=== PATIENT | male | born 1990 | race Caucasian/White ===

== ENCOUNTER 2016-09-13 10:28 | Emergency (ER) | payer SELFPAY ==
[~2016-09-13] VITALS: Ht 175.3 cm; Wt 94.0 kg
[~2016-09-13 10:28] MED LIST: TRAM50 PO
[2016-09-13 10:41] VITALS: BP 136/86; PULSE 71; RESP 16; TEMP 98.2; O2SAT 97
--- NOTE | 2016-09-13 11:34 | PD ---
HPI Chief Complaint: Injury Time Seen by Provider: 11:05 Travel History International Travel<30 days: No Contact w/Intl Traveler<30days: No Traveled to known affect area: No History of Present Illness HPI 26-year-old male presents emergency department for evaluation of right-sided rib pain. He reports that 3 days ago he attempted to jump over his couch he landed onto the flat ground injuring his right rib area. He denies head injury or loss of consciousness. He reports the pain as achy and localized to the right anterior lateral aspect of the ribs. Worse with inspiration and palpation. Relieved with rest. Severity 5 out of 10. He denies shortness of breath, chest pain, dizziness, abdominal pain, nausea or vomiting. He denies any significant past medical history. Denies any medications. He denies any other pain. FORMERLY [facility], [facility] Past Medical History Medical History: Denies Significant Hx Social History Alcohol Use: No Tobacco Use: Yes Substance Use: No Allergies-Medications (Allergen,Severity, Reaction): Coded Allergies: Gabapentin (Verified Adverse Reaction, Intermediate, WENT CRAZY, 09/13/16) Reported Meds & Prescriptions Reported Meds & Active Scripts Active No Active Prescriptions or Reported Medications Review of Systems Except as stated in HPI: all other systems reviewed are Neg Physical Exam Narrative GENERAL: Alert well appearing male. SKIN: Focused skin assessment warm/dry. No ecchymosis, no hematoma. HEAD: Atraumatic. Normocephalic. EYES: Pupils equal and round. No scleral icterus. No injection or drainage. ENT: No nasal bleeding or discharge. Mucous membranes pink and moist. NECK: Trachea midline. No JVD. No midline cervical spine tenderness. CARDIOVASCULAR: Regular rate and rhythm. No murmur appreciated. RESPIRATORY: No accessory muscle use. Clear to auscultation. Breath sounds equal bilaterally. Right anterior lateral rib tenderness. No crepitus or palpable fracture. GASTROINTESTINAL: Abdomen soft, non-tender, nondistended. Hepatic and splenic margins not palpable. MUSCULOSKELETAL: No obvious deformities. No clubbing. No cyanosis. No edema. NEUROLOGICAL: Awake and alert. No obvious cranial nerve deficits. Motor grossly within normal limits. Normal speech. PSYCHIATRIC: Appropriate mood and affect; insight and judgment normal. Data Data Last Documented VS Vital Signs Date Time Temp Pulse Resp B/P Pulse Ox O2 Delivery O2 Flow Rate FiO2 09/13/16 10:41 98.2 71 16 136/86 97 Orders Ribs, Uni (W/Exp Cxr-Min 3vw) (09/13/16 ) [facility] Medical Decision Making Medical Screen Exam Complete: Yes Emergency Medical Condition: Yes Medical Record Reviewed: Yes Differential Diagnosis Rib fracture, rib contusion, pneumothorax Narrative Course 26-year-old male with no significant past medical history presents to the emergency department for evaluation of right-sided rib pain after having a mechanical fall while 3 days ago. He reports that he attempted to jump over his couch and landed flat on his abdomen on the floor. He reports that he has had right-sided rib pain since. He denies chest pain, shortness of breath, dizziness, abdominal pain. On exam he has tenderness on the right lateral ribs. Breath sounds are present on that side. X-ray pending Chest x-ray: No pneumothorax. Possible right rib fracture nondisplaced. Diagnosis Primary Impression: Rib fracture Qualified Code: S22.31XA - Closed fracture of one rib of right side, initial encounter Referrals: Primary Care Physician Scripts Ibuprofen 800 Mg [id number] Mg PO Q8H PRN (Pain/Inflammation) #30 TAB Ref 0 Prov:Tammie Bay 09/13/16 Disposition: 01 DISCHARGE HOME Condition: Stable Tammie Bay September 13, 2016 11:34
--- NOTE | 2016-09-13 11:38 | RADHPO ---
EXAM DATE/TIME: 09/13/2016 11:19 [place] COMPARISON: No previous studies available for comparison. INDICATIONS : Fall, right side rib pain. MEDICAL HISTORY : None. SURGICAL HISTORY : None. ENCOUNTER: Initial ACUITY: 3 days PAIN SCORE: 10/10 LOCATION: Right lateral ribs FINDINGS: Multiple views of the right ribs were performed. There is mild irregularity involving the anterior r ight seventh rib. This may be a nondisplaced cortical fracture. Otherwise, ribs are grossly intact. T here is no pleural effusion or pneumothorax. CONCLUSION: Questionable nondisplaced fracture involving the anterior right seventh rib. Recommend correlation wi th point tenderness. Otherwise, unremarkable study. Vince Bender MD on September 13, 2016 at 11:35 Board Certified Radiologist. This report was verified electronically.
[2016-09-13] MEDS ORDERED: IBUP800T23 PO (11:56)
[2016-09-14] MEDS ORDERED: HYDR-3533 PO (18:05)
== END 2016-09-13 12:08 | disposition home or self-care (01) ==
LOC: PHEFT 10:28
DX: S22.31XA Fracture of one rib, right side, initial encounter for closed fracture (principal); Z72.0 Tobacco use; W22.03XA Walked into furniture, initial encounter
CPT/HCPCS: 71101; 99283

== ENCOUNTER 2016-09-14 17:15 | Emergency (ER) | payer SELFPAY ==
[~2016-09-14] VITALS: Ht 175.3 cm; Wt 95.2 kg
[~2016-09-14 17:15] MED LIST changes: +IBUP800T23 PO
[2016-09-14 17:18] VITALS: BP 131/90; PULSE 77; RESP 16; TEMP 98.2; O2SAT 97
[2016-09-14] MEDS ORDERED: HYDR-3533 PO (18:05)
[2016-09-14] MEDS ORDERED: ACETAMINOPHEN/HYDROcodone 325 MG/5 MG TAB PO ONE (18:15)
--- NOTE | 2016-09-14 18:30 | PD ---
HPI Chief Complaint: Musculoskeletal Complaint Time Seen by Provider: 18:20 Travel History International Travel<30 days: No Contact w/Intl Traveler<30days: No Traveled to known affect area: No History of Present Illness HPI 26-year-old male presents to the emergency room for evaluation of right anterior rib pain. Patient was seen in the emergency room yesterday for same and was diagnosed with nondisplaced rib fracture and discharged with ibuprofen. Patient states he woke up this morning with way increased pain. He called his friend to give him ibuprofen but states it was not helping. Pain does not increase with deep breathing. It is relieved when he raises his hand over his head and exacerbated with touching the area or putting his arm down. He denies abdominal pain, nausea, vomiting, shortness of breath, or difficulty breathing. PFSH Past Medical History Medical History: Denies Significant Hx Diminished Hearing: No Influenza Vaccination: Yes ?: Not Past Surgical History Surgical History: No Previous Surgery Social History Alcohol Use: No Tobacco Use: Yes Substance Use: No Allergies-Medications (Allergen,Severity, Reaction): Coded Allergies: Gabapentin (Verified Adverse Reaction, Intermediate, WENT SILVINA, 09/14/16) Reported Meds & Prescriptions Reported Meds & Active Scripts Active Lortab (Hydrocodone-Acetaminophen) 5-325 Mg Tab 1 Tab PO Q6H PRN Ibuprofen 800 Mg Tab 800 Mg PO Q8H PRN Review of Systems Except as stated in HPI: all other systems reviewed are Neg Physical Exam Narrative GENERAL: Well-nourished, well-developed male in no acute distress. Afebrile. Ambulatory. SKIN: Focused skin assessment warm/dry. HEAD: Normocephalic. EYES: No scleral icterus. No injection or drainage. NECK: Supple, trachea midline. No JVD or lymphadenopathy. CARDIOVASCULAR: Regular rate and rhythm without murmurs, gallops, or rubs. RESPIRATORY: Breath sounds equal bilaterally. No accessory muscle use. No crackles, rales, wheezes, or rhonchi. CHEST: Extreme tenderness to palpation in the right anterior rib rib #7. No deformity or crepitance. No retractions or use of accessory muscles. Data Data Last Documented VS Vital Signs Date Time Temp Pulse Resp B/P Pulse Ox O2 Delivery O2 Flow Rate FiO2 09/14/16 17:18 98.2 77 16 131/90 97 Orders Acetamin-Hydrocod 325-5 Mg ([place] 5-325 (09/14/16 18:15) Resp Incentive Spirometry (09/14/16 ) MDM Medical Decision Making Medical Screen Exam Complete: Yes Emergency Medical Condition: Yes Medical Record Reviewed: Yes Differential Diagnosis Fracture versus contusion versus pain control Narrative Course 26-year-old male presents to the emergency room for evaluation of right anterior rib pain. Patient was diagnosed with rib fracture yesterday but his pain is not controlled. Vital signs stable. No increased work of breathing. No crepitus. There is tenderness to palpation of right anterior rib #7. No abdominal pain. He is Eforsce negative. Patient was given Lortab in the emergency room. He was also given an incentive spirometer. He'll be discharged with prescriptions for Lortab and told to follow up with the primary care physician recheck worsening symptoms. He understands and agrees to plan. Diagnosis Primary Impression: Rib fracture Qualified Code: S22.31XD - Closed fracture of one rib of right side with routine healing, subsequent encounter Referrals: Primary Care Physician Patient Instructions: General Instructions, Rib Fracture (ED) Additional Instructions: Rest and drink plenty of fluids. Take Lortab as directed, as needed for pain. Do not drink alcohol or drive while taking this medication. Take ibuprofen with food as directed, as needed for pain. Apply ice to the affected area for 20 minutes at a time, as needed for pain and swelling. Follow-up with a primary care physician. Return to the emergency room for worsening symptoms. Med/Other Pt SpecificInfo: Prescription(s) given Scripts Hydrocodone-Acetaminophen (Lortab)5-325 Mg Tab1 Tab PO Q6H PRN (PAIN) #12 TAB Ref 0 Prov:Jair June MD 09/14/16 Disposition: 01 DISCHARGE HOME Condition: Stable Tati De Leon September 14, 2016 18:30
[2016-09-14 18:45] VITALS: RESP 16
== END 2016-09-14 18:53 | disposition home or self-care (01) ==
LOC: PHEFT 17:15
DX: S22.31XD Fracture of one rib, right side, subsequent encounter for fracture with routine healing (principal); X58.XXXD Exposure to other specified factors, subsequent encounter; Z72.0 Tobacco use; Z79.899 Other long term (current) drug therapy
CPT/HCPCS: 94150; 99283

== ENCOUNTER 2016-10-06 19:31 | Emergency (ER) | payer SELFPAY ==
[~2016-10-06] VITALS: Ht 175.3 cm; Wt 94.6 kg
[~2016-10-06 19:31] MED LIST changes: +HYDR-3533 PO; -TRAM50 PO
[2016-10-06 19:42] VITALS: BP 125/90; PULSE 87; RESP 18; TEMP 98.3; O2SAT 96
--- NOTE | 2016-10-06 20:23 | PD ---
HPI Chief Complaint: Bite or Sting Time Seen by Provider: 20:00 Travel History International Travel<30 days: No Contact w/Intl Traveler<30days: No Traveled to known affect area: No History of Present Illness HPI 26 old male presents to the emergency department with his family for evaluation of possible insect bites. Patient reports everyone in household has experienced insect bite since moving into their new housing. he reports the insects are very small "black and microscopic". he reports the insects as being in the carpet and on the furniture. He reports feeling itchy all the time. His spouse brought multiple plastic baggies with what appeared to be small black particles in as evidence of what is biting him. He denies fever, chills, headache, chest pain, shortness of breath, abdominal pain, nausea vomiting or diarrhea. [facility] Past Medical History Medical History: Denies Significant Hx Diminished Hearing: No Social History Alcohol Use: No Tobacco Use: Yes Substance Use: No Allergies-Medications (Allergen,Severity, Reaction): Coded Allergies: Gabapentin (Verified Adverse Reaction, Intermediate, WENT SILVINA, 10/06/16) Reported Meds & Prescriptions Reported Meds & Active Scripts Active No Active Prescriptions or Reported Medications Review of Systems Except as stated in HPI: all other systems reviewed are Neg Physical Exam Narrative GENERAL: Alert, well-appearing male no acute distress SKIN: Focused skin assessment warm/dry. No evidence of insect bites HEAD: Atraumatic. Normocephalic. EYES: Pupils equal and round. No scleral icterus. No injection or drainage. ENT: No nasal bleeding or discharge. Mucous membranes pink and moist. NECK: Trachea midline. No JVD. CARDIOVASCULAR: Regular rate and rhythm. No murmur appreciated. RESPIRATORY: No accessory muscle use. Clear to auscultation. Breath sounds equal bilaterally. GASTROINTESTINAL: Abdomen soft, non-tender, nondistended. Hepatic and splenic margins not palpable. MUSCULOSKELETAL: No obvious deformities. No clubbing. No cyanosis. No edema. NEUROLOGICAL: Awake and alert. No obvious cranial nerve deficits. Motor grossly within normal limits. Normal speech. PSYCHIATRIC: Appropriate mood and affect; insight and judgment normal. Data Data Last Documented VS Vital Signs Date Time Temp Pulse Resp B/P Pulse Ox O2 Delivery O2 Flow Rate FiO2 10/06/16 19:42 98.3 87 18 125/90 96 MDM Medical Decision Making Medical Screen Exam Complete: Yes Emergency Medical Condition: Yes Medical Record Reviewed: Yes Differential Diagnosis Insect bites Narrative Course 26-year-old male presents to the emergency department with his spouse and child all complaining of possible insect bites but very small black insect in her new apartment. Patient doesn't have any evidence of insect bites. He reports feeling itchy all the time. They did bring multiple plastic baggies small black particles which they claim any insects. One of the bags has what appears to be an ant. Diagnosis Primary Impression: Insect bites Qualified Code: W57.XXXA - Insect bites, initial encounter Referrals: Primary Care Physician Additional Instructions: Take [id number] Benadryl as needed for itching. I Would recommend having an tugboat captain come out and evaluate housing. Return to the emergency department if he develops fever, chills, nausea, vomiting, diarrhea, chest pain. Scripts No Active Prescriptions or Reported Meds Disposition: 01 DISCHARGE HOME Condition: Stable Tammie Bay Oct 06, 2016 20:23
== END 2016-10-06 20:30 | disposition home or self-care (01) ==
LOC: PHEFT 19:31
DX: T14.8 Other injury of unspecified body region (principal); L29.9 Pruritus, unspecified; Z72.0 Tobacco use
CPT/HCPCS: 99282

== ENCOUNTER 2017-02-07 13:23 | Emergency (ER) | payer OTHER ==
[~2017-02-07] VITALS: Ht 175.3 cm; Wt 96.2 kg
[2017-02-07 13:27] VITALS: BP 166/100; PULSE 92; RESP 20; TEMP 98.1; O2SAT 98
[2017-02-07] MEDS ORDERED: SILVER SULFADIAZINE 1% CR 400 GM JAR TOPICAL ONE (14:00)
[2017-02-07] MEDS ORDERED: ACETAMINOPHEN/HYDROcodone 325 MG/10 MG TAB PO ONE (14:00)
[2017-02-07] MEDS ORDERED: IBUPROFEN 200 MG TAB PO ONE (14:00)
[2017-02-07] MEDS ORDERED: SILV1CRE20 TOPICAL (14:08)
[2017-02-07] MEDS ORDERED: IBUP-232 PO (14:08)
[2017-02-07] MEDS ORDERED: NORC5TAB PO (14:08)
--- NOTE | 2017-02-07 14:08 | PD ---
HPI Chief Complaint: Burn Time Seen by Provider: 13:46 Travel History International Travel<30 days: No Contact w/Intl Traveler<30days: No Traveled to known affect area: No History of Present Illness HPI The patient is a 26-year-old male who presents to the emergency department for seals to the abdomen, left forearm, and right forearm. The patient states he accidentally spilled hot split pea soup on himself approximately 20 minutes prior to arrival. He does note the burn affects part of the abdomen as well as the left forearm and the right forearm. The patient does state it is painful, burning sensation, moderate, exacerbated after hot liquid came in contact with the skin, and there are no current alleviating factors. Last tetanus shot was 4 years ago. He denies any numbness or tingling of the upper or lower extremities, denies any difficulty with range of motion of the upper extremities. The patient is right-hand dominant. PFSH Past Medical History Medical History: Denies Significant Hx Diminished Hearing: No Tetanus Vaccination: < 5 Years Influenza Vaccination: No ?: Not Past Surgical History Surgical History: No Previous Surgery Social History Alcohol Use: No Tobacco Use: Yes (04/18 PPD) Substance Use: No Allergies-Medications (Allergen,Severity, Reaction): Coded Allergies: gabapentin (Unverified Adverse Reaction, Intermediate, KANCHAN COOL, ) Reported Meds & Prescriptions Reported Meds & Active Scripts Active No Active Prescriptions or Reported Medications Review of Systems Except as stated in HPI: all other systems reviewed are Neg General / Constitutional: No: Fever Cardiovascular: No: Chest Pain or Discomfort Respiratory: No: Shortness of Breath Gastrointestinal: Positive: Abdominal Pain (pain over the skin which has been burned), No: Nausea, Vomiting Musculoskeletal: Positive: Pain Skin: Positive Other (as noted in the history of present illness) Physical Exam Narrative GENERAL: Awake, alert, pleasant 26-year-old male who appears his stated age and is in no acute respiratory distress. SKIN: Focused skin assessment reveals first degree seals to the anterior aspect of the abdomen and partial second-degree seals to the left forearm with mild blister formation. The burn encompasses the mid to distal left forearm, is not completely circumferential, but does go around approximately three [address] way around the arm. Positive distal pulses. Seals noted to the extensor surface of the left hand first degree and partial second-degree with blister formation, no circumferential seals noted to the hands or fingers. First and second-degree seals noted to the right forearm distal one half to one third which are mostly on the volar aspect and not circumferential. HEAD: Atraumatic. Normocephalic. EYES: No injection or drainage. ENT: No nasal bleeding or discharge. Mucous membranes pink and moist. NECK: Trachea midline. No JVD. GASTROINTESTINAL: Abdomen soft, non-tender, nondistended. Hepatic and splenic margins not palpable. MUSCULOSKELETAL: No obvious deformities. No clubbing. No cyanosis. No edema. NEUROLOGICAL: Awake and alert. No obvious cranial nerve deficits. Motor grossly within normal limits. Normal speech. PSYCHIATRIC: Appropriate mood and affect; insight and judgment normal. Data Data Last Documented VS Vital Signs Date Time Temp Pulse Resp B/P (MAP) Pulse Ox O2 Delivery O2 Flow Rate FiO2 02/07/17 13:27 98.1 92 20 166/100 (122) 98 Orders Orders Ibuprofen (Advil) (02/07/17 14:00) Acetamin-Hydrocod 325-10 Mg ([place] 10-32 (02/07/17 14:00) Silver Sulfadi 1% Crm (400 Gm) ([place]vaden (02/07/17 14:00) MDM Medical Decision Making Medical Screen Exam Complete: Yes Emergency Medical Condition: Yes Medical Record Reviewed: Yes Differential Diagnosis Differential diagnosis includes first-degree burn, second-degree burn, third- degree burn Narrative Course The patient states his tetanus shot is up-to-date. I did offer to place an IV and administered pain medications including morphine and her Toradol through the IV, however, the patient declined. The patient was ordered ibuprofen and [place], he declined and [place] for pain. The patient was advised to run his seals under cool water and was provided ice packs to cool over the skin. The patient will be placed on Silvadene and is advised to follow-up with his primary physician 48 hours for reevaluation of his wounds. He will be discharged home on Silvadene, [place], and ibuprofen. Diagnosis Primary Impression: Seals of multiple specified sites Patient Instructions: General Instructions Additional Instructions: Medications as directed. Follow-up with your primary physician in 48 hours for reevaluation of fluids. Return sooner if symptoms worsen or progress. Med/Other Pt SpecificInfo: Prescription(s) given Scripts Ibuprofen (Ibuprofen) 600 Mg Tab 600 MG PO Q6H Y for Pain/Inflammation, #20 TAB 0 Refills Prov: Enrique Bueno MD 02/07/17 Hydrocodone-Acetaminophen ([place]) 5-325 mg Tab 1 TAB PO Q6H Y for PAIN, #20 TAB 0 Refills Prov: Enrique Bueno MD 02/07/17 Silver Sulfadiazine Topical (Silvadene Topical) 1 % Cream 1 APPLIC TOPICAL BID for Wound Management, #400 GM 0 Refills Prov: Enrique Bueno MD 02/07/17 Disposition: 01 DISCHARGE HOME Condition: Stable Enrique Bueno MD Feb 07, 2017 14:08
== END 2017-02-07 14:57 | disposition home or self-care (01) ==
LOC: PHED 13:23
DX: T22.211A Burn of second degree of right forearm, initial encounter (principal); T22.212A Burn of second degree of left forearm, initial encounter; T21.12XA Burn of first degree of abdominal wall, initial encounter; X10.1XXA Contact with hot food, initial encounter
CPT/HCPCS: 16025

== ENCOUNTER 2017-04-09 16:17 | Emergency (ER) | payer OTHER ==
[~2017-04-09] VITALS: Ht 175.3 cm; Wt 96.0 kg
[~2017-04-09 16:17] MED LIST changes: -HYDR-3533 PO; +IBUP-232 PO; -IBUP800T23 PO; +NORC5TAB PO; +SILV1CRE20 TOPICAL
[2017-04-09 16:20] VITALS: BP 160/95; PULSE 80; RESP 16; TEMP 98.3; O2SAT 97
[2017-04-09] MEDS ORDERED: PENI500T PO (16:25)
--- NOTE | 2017-04-09 16:41 | PD ---
HPI Chief Complaint: Oral / Dental Pain or Problem Time Seen by Provider: 16:36 Travel History International Travel<30 days: No Contact w/Intl Traveler<30days: No Traveled to known affect area: No History of Present Illness HPI 27-year-old male here for right upper dental pain. Patient had right upper wisdom tooth removed last week. He has had pain since the procedure. He denies fever or chills. He is currently on pen VK. Symptoms severity is mild. No aggravating or alleviating factors. PFSH Past Medical History Medical History: Denies Significant Hx Hx Anticoagulant Therapy: No Diminished Hearing: No Immunizations Current: Yes Tetanus Vaccination: < 5 Years Influenza Vaccination: No Past Surgical History Oral Surgery: Yes Social History Alcohol Use: No Tobacco Use: Yes (1/2 PPD) Substance Use: No Allergies-Medications (Allergen,Severity, Reaction): Coded Allergies: gabapentin (Unverified Adverse Reaction, Intermediate, WENT CRAZY, ) Reported Meds & Prescriptions Reported Meds & Active Scripts Active Ibuprofen 600 Mg Tab 600 Mg PO Q6H PRN Reported Penicillin V Potassium 500 Mg Tab 500 Mg PO Q8H Review of Systems Except as stated in HPI: all other systems reviewed are Neg General / Constitutional: No: Fever Physical Exam Narrative GENERAL: Alert well-appearing male. No facial swelling. SKIN: Warm and dry. HEAD: Normocephalic. EYES: No injection or drainage. Mouth: Patient points to the right upper wisdom to the site of the pain. There is no evidence of infection. No gum erythema. No purulent drainage noted. NECK: Supple, trachea midline. No JVD or lymphadenopathy. Data Data Last Documented VS Vital Signs Date Time Temp Pulse Resp B/P (MAP) Pulse Ox O2 Delivery O2 Flow Rate FiO2 04/09/17 16:20 98.3 80 16 160/95 (116) 97 MDM Medical Decision Making Medical Screen Exam Complete: Yes Emergency Medical Condition: Yes Differential Diagnosis Dental pain after dental procedure, dental abscess, dry socket Narrative Course 27-year-old male with dental pain after he had wisdom teeth removed last week. He has no evidence of infection. He was instructed to continue his penicillin, Motrin, Tylenol as directed. Follow up with his dentist. Diagnosis Primary Impression: Pain, dental Referrals: Dentist Disposition: DISCHARGE HOME Condition: Stable Tammie Bay Apr 09, 2017 16:41
== END 2017-04-09 16:55 | disposition home or self-care (01) ==
LOC: PHEFT 16:17
DX: K08.89 Other specified disorders of teeth and supporting structures (principal); F17.200 Nicotine dependence, unspecified, uncomplicated
CPT/HCPCS: 99281

== ENCOUNTER 2017-05-18 08:43 | Emergency (ER) | payer OTHER ==
[~2017-05-18] VITALS: Ht 175.3 cm; Wt 94.2 kg
[~2017-05-18 08:43] MED LIST changes: -NORC5TAB PO; +PENI500T PO; -SILV1CRE20 TOPICAL
[2017-05-18 08:46] VITALS: BP 137/89; PULSE 79; RESP 16; TEMP 98; O2SAT 98
[2017-05-18] MEDS ORDERED: HYDR-2376 PO (09:19)
--- NOTE | 2017-05-18 09:20 | PD ---
HPI Chief Complaint: Musculoskeletal Complaint Time Seen by Provider: 09:09 Travel History International Travel<30 days: No Contact w/Intl Traveler<30days: No Traveled to known affect area: No History of Present Illness HPI This 27-year-old male complaining of pain in his left shoulder and numbness of his ulnar 3 fingers. He says that last he was pulling a fridge. He hyperextended his left shoulder and felt that pop in the shoulder and had sudden pain. He's been having some pain in the shoulder since and has restricted movement. He's had numbness in the ulnar 3 fingers and is unable to flex or extend the fingers due to pain and weakness. He went to [facility] and had x-rays of the shoulder done. They have scheduled him for an MRI. He believes that it today MRI of the shoulder. He came here today because there was a 3 hour wait at [facility]. He's been on ibuprofen and has been unable to sleep at night. PFSH Past Medical History Hx Anticoagulant Therapy: No Diminished Hearing: No Immunizations Current: Yes Past Surgical History Oral Surgery: Yes Social History Alcohol Use: No Tobacco Use: Yes (04/18 PPD) Substance Use: No Allergies-Medications (Allergen,Severity, Reaction): Coded Allergies: gabapentin (Unverified Adverse Reaction, Intermediate, KANCHAN COOL, 05/18/17) Reported Meds & Prescriptions Reported Meds & Active Scripts Active No Active Prescriptions or Reported Medications Review of Systems General / Constitutional: No: Fever, Chills Eyes: No: Diploplia HENT: No: Headaches Cardiovascular: No: Chest Pain or Discomfort Respiratory: No: Cough, Shortness of Breath Gastrointestinal: No: Diarrhea Musculoskeletal: Positive: Pain Neurologic: Positive: Weakness Physical Exam Narrative GENERAL: Well-developed male SKIN: Focused skin assessment warm/dry. HEAD: Atraumatic. Normocephalic. EYES: Pupils equal and round. No scleral icterus. No injection or drainage. ENT: No nasal bleeding or discharge. Mucous membranes pink and moist. NECK: Trachea midline. No JVD. There is no tenderness of the neck posteriorly MUSCULOSKELETAL: No obvious deformities. No clubbing. No cyanosis. No edema. He is unable to flex or abduct the arm to 90 at the shoulder. It is diffusely tender. He has diminished sensation in the ulnar 3 fingers both palmar and dorsal sides. He felt cold some flexed. He is unable to flex them further or extend them completely. He is able to passively flex and extend them. NEUROLOGICAL: Awake and alert. No obvious cranial nerve deficits. Motor grossly within normal limits. Normal speech. PSYCHIATRIC: Appropriate mood and affect; insight and judgment normal. Data Data Last Documented VS Vital Signs Date Time Temp Pulse Resp B/P (MAP) Pulse Ox O2 Delivery O2 Flow Rate FiO2 05/18/17 08:46 98.0 79 16 137/89 (105) 98 MDM Medical Decision Making Medical Screen Exam Complete: Yes Emergency Medical Condition: Yes Medical Record Reviewed: Yes Differential Diagnosis Differential includes radiculopathy, brachial plexus injury, neuropathy Narrative Course His shoulder pain is suspicious for rotator cuff tear. He is being evaluated for this and is being scheduled for an MRI. He is showing no neurologic problems with diminished sensation in the ulnar 3 fingers and weakness. These deficits did not correlate with a peripheral nerve. I think he does need to have follow-up with a neurologist. He says he been unable to sleep at night due to the pain. The severity of the pain suggests this may be a neuropathy. Diagnosis Primary Impression: Neuropathy of left hand Additional Impression: Rotator cuff arthropathy of left shoulder Departure Forms: Tests/Procedures, Work Release Enter return to work date: May 22, 2017 Scripts Hydrocodone-Acetaminophen (Hydrocodone-Acetaminophen) 7.5-300 Mg Tab 1 TAB PO Q4H Y for PAIN, #10 TAB 0 Refills Prov: Jermaine López MD 05/18/17 Disposition: 01 DISCHARGE HOME Condition: Stable Jermaine López MD May 18, 2017 09:20
== END 2017-05-18 09:37 | disposition home or self-care (01) ==
LOC: PHEFT 08:43
DX: G62.9 Polyneuropathy, unspecified (principal); M12.512 Traumatic arthropathy, left shoulder; T14.90XA Injury, unspecified, initial encounter; X50.0XXA Overexertion from strenuous movement or load, initial encounter
CPT/HCPCS: 99283

== ENCOUNTER 2017-06-23 10:14 | Emergency (ER) | payer OTHER ==
[~2017-06-23] VITALS: Ht 175.3 cm; Wt 93.8 kg
[~2017-06-23 10:14] MED LIST changes: +HYDR-2376 PO; -IBUP-232 PO; -PENI500T PO
[2017-06-23 10:40] VITALS: BP 150/78; PULSE 78; RESP 16; TEMP 98.4; O2SAT 98
[2017-06-23] MEDS ORDERED: MOBI7.5T PO (10:45)
[2017-06-23] MEDS ORDERED: [UNRECOGNIZED DRUG - REMARK] (10:45)
[2017-06-23] MEDS ORDERED: HYDR12.57 PO (11:33)
--- NOTE | 2017-06-23 11:33 | PD ---
HPI Chief Complaint: GI Complaint Time Seen by Provider: 10:43 Travel History International Travel<30 days: No Contact w/Intl Traveler<30days: No Traveled to known affect area: No History of Present Illness HPI This is a 27-year-old male who presents to the ER complaining of nausea vomiting in the area for the last 2 days. Patient did want to put a fever at home, and on its own. Denies any body aches no runny nose or congestion, denies any abdominal pain or rashes pain. No recent travel or sick contacts. PFSH Past Medical History Hx Anticoagulant Therapy: No Diminished Hearing: No Immunizations Current: Yes Tetanus Vaccination: Unknown Past Surgical History Oral Surgery: Yes Social History Alcohol Use: No Tobacco Use: Yes (04/18 PPD) Substance Use: No Allergies-Medications (Allergen,Severity, Reaction): Coded Allergies: gabapentin (Unverified Adverse Reaction, Intermediate, WENT CRAZY, 05/18/17) Reported Meds & Prescriptions Reported Meds & Active Scripts Active Hydrochlorothiazide 12.5 Mg Cap 12.5 Mg PO DAILY Reported ["Stomach Pill"] Mobic (Meloxicam) 7.5 Mg Tab 7.5 Mg PO DAILY Review of Systems Except as stated in HPI: all other systems reviewed are Neg Physical Exam Narrative GENERAL: Alert oriented 3 no acute distress SKIN: Focused skin assessment warm/dry. HEAD: Atraumatic. Normocephalic. EYES: Pupils equal and round. No scleral icterus. No injection or drainage. ENT: No nasal bleeding or discharge. Mucous membranes pink and moist. NECK: Trachea midline. No JVD. CARDIOVASCULAR: Regular rate and rhythm. No murmur appreciated. RESPIRATORY: No accessory muscle use. Clear to auscultation. Breath sounds equal bilaterally. GASTROINTESTINAL: Abdomen soft, non-tender, nondistended. Hepatic and splenic margins not palpable. MUSCULOSKELETAL: No obvious deformities. No clubbing. No cyanosis. No edema. NEUROLOGICAL: Awake and alert. No obvious cranial nerve deficits. Motor grossly within normal limits. Normal speech. PSYCHIATRIC: Appropriate mood and affect; insight and judgment normal. Data Data Last Documented VS Vital Signs Date Time Temp Pulse Resp B/P (MAP) Pulse Ox O2 Delivery O2 Flow Rate FiO2 06/23/17 11:39 74 16 149/75 (99) 98 06/23/17 10:40 98.4 Orders Orders Influenzae A/B Antigen (06/23/17 11:05) MDM Medical Decision Making Medical Screen Exam Complete: Yes Emergency Medical Condition: Yes Differential Diagnosis Gastroenteritis, influenza, gastritis. Narrative Course This is a 21-year-old male presents to the ER complaining of nausea vomiting and diarrhea for 2 days. Influenza is negative, physical exam is unremarkable. I believe this patient has a viral gastroenteritis that will improve with supportive treatment.Patient also has elevated blood pressure at home as well as at doctor's office and he states that his doctor wanted to start him on antihypertensive medications but he wanted to wait and watch. Patient has elevated blood pressure in the ER and I feel will be beneficial for the patient if we started him on to hypertensive medications and I encouraged him to follow- up with his primary care physician. Patient understands the plan of care and will follow up with his primary. Diagnosis Primary Impression: Gastroenteritis Additional Impression: HTN (hypertension) Qualified Codes: I10 - Essential (primary) hypertension Scripts Hydrochlorothiazide (Hydrochlorothiazide) 12.5 Mg Cap 12.5 MG PO DAILY, #30 CAP 0 Refills Prov: Justice Oh MD 06/23/17 Disposition: 01 DISCHARGE HOME Condition: Stable Justice Oh MD Jun 23, 2017 11:33
[2017-06-23 11:39] VITALS: BP 149/75
== END 2017-06-23 11:45 | disposition home or self-care (01) ==
LOC: PHEFT 10:14
DX: A08.4 Viral intestinal infection, unspecified (principal); I10 Essential (primary) hypertension; F17.200 Nicotine dependence, unspecified, uncomplicated
CPT/HCPCS: 87804; 99283

== ENCOUNTER 2017-07-01 19:45 | Emergency (ER) | payer OTHER ==
[~2017-07-01] VITALS: Ht 175.3 cm; Wt 93.4 kg
[~2017-07-01 19:45] MED LIST changes: -HYDR-2376 PO; +HYDR12.57 PO; +MOBI7.5T PO; +[UNRECOGNIZED DRUG - REMARK]
[2017-07-01 19:48] VITALS: BP 142/82; PULSE 100; RESP 18; TEMP 98.4; O2SAT 97
[2017-07-01 20:03] VITALS: BP 131/84; PULSE 93; RESP 18; O2SAT 97
[2017-07-01] MEDS ORDERED: ONDANSETRON ODT 4 MG TAB PO/SL ONE (20:30)
--- NOTE | 2017-07-01 20:57 | PD ---
HPI Chief Complaint: Headache Time Seen by Provider: 20:25 Travel History International Travel<30 days: No Contact w/Intl Traveler<30days: No Traveled to known affect area: No History of Present Illness HPI 27-year-old male presents to the emergency department complaint of headache. According the patient prior to arrival to the emergency department after working outdoors all day on his automobile and using a wrench aggressively to remove bolts from his wheels of his vehicle he decided to go inside to rest and as he stood up from an awkward position where he had been reaching up underneath an object to remove bolts from his automobile wheels he felt an ache in his neck and a headache. Patient states no near syncope or syncope. Patient denies any upper extremity or lower extremity numbness tingling or weakness. Patient denies any ataxia of gait. Patient states he did develop a headache that was approximately 8/10 in intensity. Patient felt stiff. Patient went indoors and took aspirin and ibuprofen. Patient states after sipping some water he felt nauseated so decided not to eat anything. Patient states he has had no nutritional intake since breakfast. No prior history of hypoglycemia or uncontrolled blood sugar. No history of diabetes. Patient thinks he has a history of high blood pressure but takes no medications. Patient reports that he is gone to doctor visits occasionally and his blood pressure is elevated but he has never been placed on any medications. Patient does not know if he has issues with dyslipidemia. Patient is asymptomatic at this time except for mild headache 2/10 in intensity and some mild nausea but states that his left-sided headache has resolved completely and the soreness in his neck is resolved completely. Patient states he did not have any kind of head injury did not fall to the ground. Patient's had no recent respiratory illness or febrile illness. Patient's had no head pressure sinus pressure drainage earache sore throat lymphadenopathy cough congestion shortness of breath chest pain referred neck jaw back shoulder arm or abdominal pain. Patient does not report any family history of headache or subarachnoid hemorrhage or cerebral aneurysm. Patient states that he did not try to eat anything and now he feels better suspects that if he eats some food he probably would not have come to the emergency room. Patient denies other concerns or complaints. Patient does admit to tobacco use; denies any alcohol use or substance use. PFSH Past Medical History Narrative Medical Oral surgery; tobacco use; nursing notes reviewed Medical History: Denies Significant Hx Hx Anticoagulant Therapy: No Diminished Hearing: No Immunizations Current: Yes Tetanus Vaccination: > 5 Years Influenza Vaccination: No ?: Not Past Surgical History Oral Surgery: Yes Social History Alcohol Use: No Tobacco Use: Yes (/2 PPD) Substance Use: No Allergies-Medications (Allergen,Severity, Reaction): Coded Allergies: gabapentin (Verified Adverse Reaction, Intermediate, WENT CRAZY, 07/01/17) Reported Meds & Prescriptions Reported Meds & Active Scripts Active No Active Prescriptions or Reported Medications Narrative Medication Aspirin, ibuprofen Review of Systems Except as stated in HPI: all other systems reviewed are Neg General / Constitutional: No: Fever, Chills Eyes: No: Diploplia, Blurred Vision, Photophobia, Blind Spots, Visual changes HENT: Positive: Headaches, Neck Stiffness, No: Vertigo, Lightheadedness, Sore Throat, Congestion, Neck Pain, Masses, Earache Cardiovascular: No: Chest Pain or Discomfort, Palpitations, Irregular Rhythm, Tachycardia, Diaphoresis, Syncope, Dyspnea on exertion Respiratory: No: Cough, Shortness of Breath Gastrointestinal: Positive: Nausea, No: Vomiting, Diarrhea, Abdominal Pain Genitourinary: No: Dysuria, Flank Pain Musculoskeletal: No: Myalgias, Arthralgias, Limited ROM, Weakness, Cramping, Edema, Pain Skin: No Rash Neurologic: Positive: Headache, No: Weakness, Dizziness, Syncope, Focal Abnormalities, Coordination Problem, Ataxia, Change in Mentation, Slurred Speech , Paresthesia, Incontinence, Seizures, Sensory Disturbance Psychiatric: No: Anxiety, Depression Endocrine: No: Heat Intolerance Hematologic/Lymphatic: No: Easy Bruising Physical Exam Narrative GENERAL: Well-developed well-nourished male no acute distress or respiratory distress; GCS 15 SKIN: Warm and dry. HEAD: Atraumatic. Normocephalic. EYES: Pupils equal and round. Extraocular muscles intact. No papilledema by funduscopic exam bilaterally. No scleral icterus. No injection or drainage. ENT: No nasal bleeding or discharge. Mucous membranes pink and moist. NECK: Trachea midline. No JVD. Supple. No meningismus no nuchal rigidity. No midline tenderness to direct palpation along the cervical spine no bony step- off. No paracervical muscle spasm or tenderness. CARDIOVASCULAR: Regular rate and rhythm. RESPIRATORY: No accessory muscle use. Clear to auscultation. Breath sounds equal bilaterally. GASTROINTESTINAL: Abdomen soft, non-tender, nondistended. Hepatic and splenic margins not palpable. MUSCULOSKELETAL: Extremities without clubbing, cyanosis, or edema. No obvious deformities. NEUROLOGICAL: Awake and alert. GCS 15 no obvious cranial nerve deficits. Motor grossly within normal limits. Five out of 5 muscle strength in the arms and legs. Sensory exam intact. DTRs 2+ and equal bilateral upper extremities and lower extremities without clonus. No limb ataxia. No pronator drift. Normal speech. PSYCHIATRIC: Appropriate mood and affect; insight and judgment normal. Data Data Last Documented VS Vital Signs Date Time Temp Pulse Resp B/P (MAP) Pulse Ox O2 Delivery O2 Flow Rate FiO2 07/01/17 20:03 18 97 Room Air 07/01/17 20:03 93 131/84 (100) 07/01/17 19:[address] Brain W/O Iv Contrast(Rout) (07/01/17 20:25) Oximetry (07/01/17 20:25) Ondansetron Odt (Zofran Odt) (07/01/17 20:30) Blood Glucose (07/01/17 20:25) Bilateral Bp Monitoring (07/01/17 20:25) MDM Medical Decision Making Medical Screen Exam Complete: Yes Emergency Medical Condition: Yes Medical Record Reviewed: Yes Differential Diagnosis Cephalgia, muscular skeletal pain, dehydration, hyperglycemia; also to consider subarachnoid hemorrhage, does not appear consistent with posterior circulation/ vertebral aa dissection. Narrative Course Plan: Bedside glucose, bilateral upper extremity blood pressures, CT brain noncontrast, Zofran 4 mg ODT administration At 8:52 PM informed by patient's nurse that patient has eloped from the emergency department after telling her he was going to check on something in his vehicle. Diagnosis Primary Impression: Left against medical advice Additional Instructions: AMA Scripts No Active Prescriptions or Reported Meds Disposition: 07 AGAINST MEDICAL ADVICE Condition: Stable Jo-Ann Gray MD Jul 01, 2017 20:57
== END 2017-07-01 21:21 | disposition left against medical advice (07) ==
LOC: PHED 19:45
DX: R51 Headache (principal); M54.2 Cervicalgia; R11.0 Nausea; R03.0 Elevated blood-pressure reading, without diagnosis of hypertension; F17.200 Nicotine dependence, unspecified, uncomplicated; Z53.20 Procedure and treatment not carried out because of patient's decision for unspecified reasons
CPT/HCPCS: 99283

== ENCOUNTER 2017-08-01 15:33 | Emergency (ER) | payer OTHER ==
[~2017-08-01] VITALS: Ht 177.8 cm; Wt 94.0 kg
[2017-08-01 15:38] VITALS: BP 143/81; PULSE 92; RESP 16; TEMP 98.6; O2SAT 96
--- NOTE | 2017-08-01 15:58 | PD ---
HPI Chief Complaint: Cold / Flu Symptoms Time Seen by Provider: 15:47 Travel History International Travel<30 days: No Contact w/Intl Traveler<30days: No Traveled to known affect area: No History of Present Illness HPI 27-year-old male presents emergency department for evaluation of cough, congestion and postnasal drip that started yesterday. Says the cough is dry and nonproductive. Patient states that he was at work when his boss noticed that he was coughing significantly and he insisted that he come to be evaluated. He denies fever, chills, shortness of breath, chest pain. Denies any recent sick contacts. He believes that his symptoms are related to allergies but again was advised to come to the emergency department for evaluation by his boss prior to returning to work. Patient says he has not tried any medications [id number]. PFSH Past Medical History Medical History: Denies Significant Hx Hx Anticoagulant Therapy: No Diminished Hearing: No Immunizations Current: Yes Influenza Vaccination: No ?: Not Past Surgical History Oral Surgery: Yes Social History Alcohol Use: No Tobacco Use: No Substance Use: No Allergies-Medications (Allergen,Severity, Reaction): Coded Allergies: gabapentin (Verified Adverse Reaction, Intermediate, KANCHAN COOL, 08/01/17) Reported Meds & Prescriptions Reported Meds & Active Scripts Active No Active Prescriptions or Reported Medications Review of Systems Except as stated in HPI: all other systems reviewed are Neg Physical Exam Narrative GENERAL: Well-nourished, well-developed patient. SKIN: Focused skin assessment warm/dry. HEAD: Normocephalic. EYES: No scleral icterus. No injection or drainage. NECK: Supple, trachea midline. No JVD or lymphadenopathy. Posterior pharynx mildly erythematous with cobblestoning, postnasal drip present CARDIOVASCULAR: Regular rate and rhythm without murmurs, gallops, or rubs. RESPIRATORY: Breath sounds equal bilaterally. No accessory muscle use. GASTROINTESTINAL: Abdomen soft, non-tender, nondistended. No CVA tenderness MUSCULOSKELETAL: No cyanosis, or edema. BACK: Nontender without obvious deformity. No CVA tenderness. Data Data Last Documented VS Vital Signs Date Time Temp Pulse Resp B/P (MAP) Pulse Ox O2 Delivery O2 Flow Rate FiO2 08/01/17 15:38 98.6 92 16 143/81 (101) 96 Orders Orders Ed Discharge Order (08/01/17 15:58) [facility] Medical Decision Making Medical Screen Exam Complete: Yes Emergency Medical Condition: Yes Differential Diagnosis Bronchitis, allergic rhinitis, postnasal drip, pneumonia, influenza Narrative Course 27-year-old male presents emergency department for evaluation of cough, congestion postnasal drip that started yesterday. Patient is not taking any medication to relieve his symptoms. He denies chronic medical issues medication use. Denies shortness breath, chest pain, fever, chills. He has no other complaints today and requests a work note to notify his boss. Vital signs are stable. Physical exam findings essentially unremarkable except for some mild posterior pharyngeal injection with postnasal drip. Lungs clear to auscultation bilaterally no wheezing Cough and allergy symptom management given. Advised that he should follow-up with his primary care physician this week. Return for worsening or persistent symptoms. Diagnosis Primary Impression: Allergic rhinitis Qualified Codes: J30.9 - Allergic rhinitis, unspecified Additional Impression: Post-nasal drip Referrals: Primary Care Physician Departure Forms: Tests/Procedures, Work Release Enter return to work date: Aug 04, 2017 Special Instructions: If you feel better, you may return sooner to work. Additional Instructions: You may use a drop of honey and lemon in a cup of warm water to soothe your cough. (If greater than 1 year old) Ensure good hydration and a nutritious diet. Note that viral infections may last for several weeks. Follow up with your primary physician within 2-3 days. Return to the ED for worsening or persistent symptoms. You may use Zyrtec, Claritin, Bree for your allergy type of symptoms. If your symptoms persist return to the emergency department. Scripts No Active Prescriptions or Reported Meds Disposition: 01 DISCHARGE HOME Condition: Stable Alicja Parmar Aug 01, 2017 15:58
== END 2017-08-01 16:10 | disposition home or self-care (01) ==
LOC: PHEFT 15:33
DX: J30.9 Allergic rhinitis, unspecified (principal); R09.82 Postnasal drip
CPT/HCPCS: 99282